=== PATIENT | male | born 1990 | race Asian ===

== ENCOUNTER 2024-05-09 12:29 | Emergency (ER) | payer SELFPAY ==
[~2024-05-09] VITALS: Ht 167.6 cm; Wt 81.6 kg
[2024-05-09 12:56] VITALS: BP_SYST 114; PULSE 104; RESP 22; TEMP 98.3; O2SAT 95
[2024-05-09 13:49] LABS: BASOPHILS % (AUTO) 0.2 % (0.0-2.0); EOSINOPHILS # (AUTO) 0.1 K/uL (0.0-0.4); EOSINOPHILS % (AUTO) 0.8 % (0.0-4.0); HEMATOCRIT 37.4 % (36-54); HEMOGLOBIN 12.6 g/dL (14.0-18.0); LYMPHOCYTES # (AUTO) 2.2 K/uL (1.0-5.5); LYMPHOCYTES % (AUTO) 15.9 % (20.5-51.5); MEAN CORPUSCULAR HEMOGLOBIN 31 pg (27-31); MEAN CORPUSCULAR HGB CONC 34 % (32-36); MEAN CORPUSCULAR VOLUME 91 fL (79.0-98.0); MONOCYTES # (AUTO) 1.4 K/uL (0.0-1.0); NEUTROPHILS # (AUTO) 10.3 K/uL (1.8-7.7); NEUTROPHILS % (AUTO) 73.1 % (40.0-70.0); PLATELET COUNT (AUTO) 378 K/uL (130-430); RED BLOOD CELL COUNT(AUTO) 4.12 MIL/uL (4.2-6.2); RED CELL DISTRIBUTION WIDTH 12.9 % (9.0-15.0); WHITE BLOOD COUNT (AUTO) 14.1 K/uL (4.8-10.8)
[2024-05-09] MEDS ORDERED: ONDA-8 TL (13:53)
[2024-05-09] MEDS ORDERED: BUTA1CAP43 PO (13:53)
[2024-05-09] MEDS: ONDANSETRON 4 MG ODT TAB PO ONE (13:57)
[2024-05-09] MEDS: KETOROLAC TROMETHAMINE 30 MG VIAL IM ONE (13:58)
[2024-05-09 14:00] LABS: BARBITURATE, URINE NEGATIVE (NEG <=200); BENZODIAZEPINE, URINE NEGATIVE (NEG <=150); COCAINE, URINE NEGATIVE (NEG <=150); METHAMPHETAMINES SCREEN,URINE NEGATIVE (NEG <=500); OPIATE, URINE NEGATIVE (NEG <=100); PHENCYCLIDINE SCREEN,URINE NEGATIVE (NEG <=25); URINE AMPHETAMINE NEGATIVE (NEG <=500); URINE METHADONE NEGATIVE (NEG <=200); URINE OXYCODONE SCREEN NEGATIVE (NEG <=100)
[2024-05-09 14:00] LABS: ALBUMIN 3.2 g/dL (3.4-4.8); BILIRUBIN,DIRECT 0.2 mg/dL (0.0-0.3); CALCIUM 9.2 mg/dL (8.4-11.0); CREATININE 0.82 mg/dL (0.55-1.30); POTASSIUM 3.7 mmol/L (3.5-5.1); TOTAL BILIRUBIN 0.8 mg/dL (0.0-1.0); TOTAL PROTEIN, SERUM 7.9 g/dL (6.4-8.3)
[2024-05-09 14:01] LABS: CANNABINOID, URINE POSITIVE (NEG <=50); UR TRICYCLIC ANTIDEPRESSANTS NEGATIVE (NEG <=300)
[2024-05-09] MEDS ORDERED: AUG875 PO (14:19)
[2024-05-09 14:23] LABS: PROTHROMBIN TIME 10.3 SECS (9.5-12.5)
== END 2024-05-09 14:55 | disposition home or self-care (01) ==
LOC: SED 12:29
DX: R04.0 Epistaxis (principal); Z79.899 Other long term (current) drug therapy
CPT/HCPCS: 99283; 80307; 80076; 80048; 85025; 85610; 85730; 36415; 96372; Q0162; J1885